=== PATIENT | male | born 1950 | race Caucasian/White ===

== ENCOUNTER 2024-05-07 09:27 | Outpatient (OUT) | payer MEDICARE, OTHER, SELFPAY ==
--- NOTE | 2024-05-07 09:37 | XR_ITS ---
The [address] [address] Patient Name: BOLIVAR ORNELAS MRN: [id number] date: 1950 Sex: M Assigned Patient Location: [facility] Current Patient Location: [facility] Accession/Order Number: [id number] Exam Date: 05/07/2024 09:40 Report Date: 05/07/2024 14:22 At the request of: NISHA SUAREZ Procedure: XR foot KENRICK min 3V EXAMINATION: XR foot KENRICK min 3V HISTORY: Bilateral foot pain COMPARISON: No relevant comparison available. FINDINGS: RIGHT FINDINGS: BONES: No acute fracture or dislocation. Pes planus with plantar rotation of the talus in relation to the midfoot. Moderate degenerative changes with joint space narrowing marginal osteophyte formation SOFT TISSUES: Negative. No visible soft tissue swelling. OTHER: Negative. LEFT FINDINGS: BONES: No acute fracture or dislocation. Pes planus with plantar rotation of the hindfoot. Mild to moderate degenerative changes with joint space narrowing SOFT TISSUES: Negative. No visible soft tissue swelling. OTHER: Negative. XR/XR foot KENRICK min 3V IMPRESSION: Moderate bilateral degenerative changes Bilateral pes planus Electronically authenticated by: ALISE STONE Date: 05/07/2024 14:22
== END 2024-05-07 09:28 | disposition home or self-care (01) ==
PROVIDERS: Visit Provider Podiatrist Foot & Ankle Surgery
DX: M79.672 Pain in left foot (principal); M21.41 Flat foot [pes planus] (acquired), right foot; M21.42 Flat foot [pes planus] (acquired), left foot
CPT/HCPCS: 73630

== ENCOUNTER 2025-05-27 09:47 | Outpatient (OUT) | payer MEDICARE, OTHER, SELFPAY ==
--- OUTSIDE RECORDS SUMMARY | 2025-05-27 09:58 | XMS_ITS | Clinical Summary ---
Author Organization [facility] Address [address] [facility] [place] [address] Care Team Providers Care Ibm Bpm Architect Name Role Phone Unavailable Primary Care Provider Unavailabl e Social History Tobacco UseTypesPacks/DayYears UsedDateSmoking Tobacco: Never AssessedSex and Gender InformationValueDate RecordedSex Assigned at BirthNot on fileLegal Sex Male08/17/2022 7:13 PM EDTGender IdentityNot on fileSexual OrientationNot on file Last Filed Vital Signs Vital SignReadingTime TakenCommentsBlood Pressure--Pulse--Temperature-- Respiratory Rate--Oxygen Saturation--Inhaled Oxygen Concentration--Kzxfpr111 kg (235 lb)10/11/2022 12:00 PM KAAVyzxkg419.9 cm (6')10/11/2022 12:00 PM EDTBody Mass Index31.8710/11/2022 12:00 PM EDT Plan of Treatment Not on file Insurance
--- OUTSIDE RECORDS SUMMARY | 2025-05-27 09:58 | XMS_ITS | Patient Health Record ---
Author Organization The [facility] Address [address] [place] [address] Care Team Providers Care Information Assurance Engineer Name Role Phone Zac Leija DO Primary Care Provider Unavailabl e Allergies No Known Allergies Reason For Referral No Information Medications Medication SIG (Take, Route, Frequency, Duration) Notes Start Date End Date Status Rosuvastatin Calcium 10 MG 1 tablet Orally Once a day ActiveDiclofenacActiveIndapamide 2.5 MG1 tablet in the morning Orally Once a day ActiveCitalopram Hydrobromide 20 MG1 tablet Orally Once a dayActive Spironolactone 25 MG1 tablet OrallyActiveMetoprolol Succinate 50 MG1 capsule Orally Once a dayActiveamLODIPine Besylate 5 MG1 tablet Orally Once a dayActive Social History Tobacco Use: Social History Observation Description Date Details (start date - stop date) Former Smoker NA - NA Tobacco Control (Standard) Question Answer Notes Tobacco use: Former smoker Problems Problem Type SNOMED Code ICD Code Onset Dates Problem Status W/U Status Risk Notes Problem Localized, primary o steoarthritis of the ankle and/or foot (046398562) Primary osteoarthritis, right ankle and foot (M19.071) Activeconfirmed Plan Of Treatment Pending Test Test Name Order Date XR Foot LT (3 views) * 05/07/2024 XR foot KENRICK min 3V 05/07/2024 Insurance Providers Payer Name Payer Address Payer Phone Subscriber Number Group Number Insured Name Patient Relationship to Insured Coverage Start Date Coverage End Date [place] [address] [place] [address] [id number] Taras Silva - [facility] [address] [place], [place] [id number], SteveSelf - patient is the insured Medical (General) History Medical History History ICD Code hypertension high cholesterol
--- OUTSIDE RECORDS SUMMARY | 2025-05-27 09:58 | XMS_ITS | Patient Health Record ---
Author Organization The [facility] Address [address] [place] [address] Care Team Providers Care Pull Socket Assembler Name Role Phone Zac Leija Primary Care Provider Unavailabl e Reason For Referral No Information Immunizations Vaccine Route Administration Date Status Comme nts z2024 Fluzone, HIGH DOSE, PFS (0.5mL Admin) IM Intramuscular 04/23/2024 Administered zPfizer Covid19 Comirnaty (12yr and up) Coleman (0.3mL)IM Intramuscular 4Administered Plan Of Treatment No Information Insurance Providers Payer Name Payer Address Payer Phone Subscriber Number Group Number Insured Name Patient Relationship to Insured Coverage Start Date Coverage End Date [place] [address] [place] [phone] [id number], SteveSelf - patient is the insuredMedical [facility]PO [address] [place] [id number], Steve Self - patient is the insured
--- OUTSIDE RECORDS SUMMARY | 2025-05-27 09:58 | XMS_ITS | Patient Health Record ---
Author Organization The [facility] Address [address] [place] [address] Care Team Providers Care Venue Manager Name Role Phone Zac Leija Primary Care Provider Unavailabl e Reason For Referral No Information Immunizations Vaccine Route Administration Date Status Comme nts z2023 Fluzone, 65 y/o & Older, Quad HIGH DOSE PFS (0.7 mL Admin) IM Intramuscular 03/19/2023 Administered Pfizer Covid19 (12yr & up) Wayne (0.3mL)IM Kpgdudeswawux78/15/2023dministered Plan Of Treatment No Information Insurance Providers Payer Name Payer Address Payer Phone Subscriber Number Group Number Insured Name Patient Relationship to Insured Coverage Start Date Coverage End Date [place] [address] [place] [phone] [id number], STEVENSelf - patient is the insuredMedical [facility] [place] [id number], STEVEN Self - patient is the insured
--- NOTE | 2025-05-27 10:01 | XR_ITS ---
The [address] [address] Patient Name: DANIELE ORNELAS MRN: [id number] date: 1950 Sex: M Assigned Patient Location: [facility] Current Patient Location: [facility] Accession/Order Number: [id number] Exam Date: 05/27/2025 10:15 Report Date: 05/27/2025 11:42 At the request of: NISHA SUAREZ DPNoe Procedure: XR ankle KENRICK min 3V BILATERAL ANKLES - 3 views each COMPARISON: None CLINICAL DATA: Chronic bilateral ankle pain. No reported injury. Weightbearing AP, lateral and oblique views were obtained. There is osteopenia. No acute fractures or dislocation are seen. There is flattening of the plantar arch bilaterally, right side slightly worse than left. There is lateral tilt of the talar dome on both sides. There is narrowing of the weightbearing tibiotalar joint on the right. There is asymmetry at the ankle mortise on the left with narrowing medially and slight widening laterally. There is mild spurring at the distal tibia anteriorly on both sides. There are chronic-appearing bony ossicles along the superior margin of the right calcaneus extending toward the talus and adjacent to the right medial malleolus. No significant soft tissue swelling is seen. XR/XR ankle KENRICK min 3V IMPRESSION: OSTEOPENIA AND DEGENERATIVE CHANGES, DESCRIBED. Impression dictated by: Liset Waddell M.D. 05/27/2025 11:42 AM Dictation Location: [facility] Electronically authenticated by: [id number] Date: 05/27/2025 11:42
== END 2025-05-27 09:48 | disposition home or self-care (01) ==
PROVIDERS: PCP Family Medicine; Visit Provider Podiatrist Foot & Ankle Surgery
DX: M25.571 Pain in right ankle and joints of right foot (principal); M25.572 Pain in left ankle and joints of left foot; M85.88 Other specified disorders of bone density and structure, other site
CPT/HCPCS: 73610